=== PATIENT | male | born 1945 | race Hispanic/Latino ===

== ENCOUNTER 2021-09-07 10:10 | Emergency (ER) | payer OTHER ==
[2021-09-07] MEDS ORDERED: ACETAMINOPHEN 325 MG TABLET ONE (10:46)
--- NOTE | 2021-09-07 11:04 | RAD REPORT ---
EXAM DESCRIPTION: CT - Facial Bones W/ Mpr - 09/07/2021 10:36 am CLINICAL HISTORY: Fall, blunt force trauma to the forehead and face, laceration, patient on Plavix COMPARISON: None. TECHNIQUE: Axial 2 millimeter thick images of the facial bones were obtained with sagittal and coron al reconstruction imaging. All CT scans are performed using dose optimization technique as appropriate and may include automated exposure control or mA/KV adjustment according to patient size. FINDINGS: Small left frontal scalp hematoma is present. Underlying bone is intact. No other signific ant soft tissue injury seen. No foreign body. No facial bone fracture identified. Condyles of the man dible are normally positioned. No globe or orbital content abnormality seen. Mastoid air cells and paranasal sinuses are clear. IMPRESSION: Small left frontal scalp hematoma with underlying bone and sinus intact. No facial bone fracture or other significant finding.
--- NOTE | 2021-09-07 11:07 | RAD REPORT ---
EXAM DESCRIPTION: CT - CTHCSPWOC - 09/07/2021 10:36 am CLINICAL HISTORY: fall w/o loc, blunt force trauma to the forehead COMPARISON: No comparisons TECHNIQUE: Axial 5 mm thick images of the head were obtained. Axial 2 mm thick images of the cervic al spine were obtained with sagittal and coronal reconstruction images generated and reviewed. All CT scans are performed using dose optimization technique as appropriate and may include automated exposure control or mA/KV adjustment according to patient size. FINDINGS: No intracranial hemorrhage, mass, edema or acute intracranial finding. No cortical level i nfarction seen. No cortical edema or sulcal effacement. Patient has moderate severity bifrontal atrop hy. Remaining cerebral atrophy pattern is more mild in severity. Ventricles are in proportion to volu me loss. Mild to moderate severity chronic ischemic changes are present. Again, findings are more pro nounced in the frontal lobes. No extra-axial fluid collections. The mastoid air cells are clear. Faci al bones, orbits and sinuses are separately detailed. And Cervical body height and alignment are normal. No disk space narrowing. No fracture or acute bony abn ormality. Degenerative changes are present at the dens anterior arch C1 level. Calcifications of the transverse ligament posterior to the dens noted. Central canal detail is inherently limited. No paraspinal mass or hematoma. IMPRESSION: Atrophy and chronic ischemic changes are present with no acute intracranial finding seen . Facial bones, sinuses and orbits are separately detailed. No acute cervical spine finding. Negative CT cervical spine examination for acute or significant finding.
--- NOTE | 2021-09-07 11:20 | ER ---
Nurse's Notes [facility] Name: Malvin Pierre Age: 75 yrs Sex: Male : 1945 Arrival Date: 09/07/2021 Time: 10:12 Bed 2 Private MD: Janusz Brand Diagnosis: Abrasion of nose;Scalp Hematoma Presentation: 09/07 10:28 Chief complaint: Patient states: "I was just walking and I lost my balance and fell and vg1 hit my head on the concrete." Pt appears to have an abrasion to forehead and nose and swelling, no bleeding. Pt denies LOC. Pt states is taking Plavix. Coronavirus screen:. Ebola Screen: Patient denies exposure to infectious person. Patient denies travel to an Ebola-affected area in the 21 days before illness onset. Initial Sepsis Screen: Does the patient meet any 2 criteria? No. Patient's initial sepsis screen is negative. Does the patient have a suspected source of infection? No. Patient's initial sepsis screen is negative. Risk Assessment: Do you want to hurt yourself or someone else? Patient reports no desire to harm self or others. Onset of symptoms was September 07, 2021 at 09:45. 10:28 Method Of Arrival: Wheelchair vg1 10:28 Acuity: JOHN 3 vg1 10:33 Mechanism of Injury: Fall from standing position. [facility] 11:40 Care prior to arrival: None. Trauma event details: Injury occurred in the [facility] [place], Injury occurred: at home. Injury occurred: September 07, 2021 Injury occurred at: 10:00. Triage Assessment: 10:30 General: Appears in no apparent distress. comfortable, Behavior is calm, cooperative. vg1 Pain: Complains of pain in forehead Pain currently is 7 out of 10 on a pain scale. Neuro: Level of Consciousness is awake, alert, obeys commands, Oriented to person, place, time, situation. Trauma Activation: Consult Physician: ED Physician; Name: ; Notified At: ; Arrived At: Physician: General Surgeon; Name: ; Notified At: ; Arrived At: Physician: Radiology; Name: ; Notified At: ; Arrived At: Physician: Respiratory; Name: ; Notified At: ; Arrived At: Physician: Lab; Name: ; Notified At: ; Arrived At: Historical: - Allergies: 10:30 Codeine; vg1 - Home Meds: 10:30 Plavix Oral [Active]; vg1 - Immunization history: Last tetanus immunization: - up to date. - Social history:: Smoking status: Patient denies any tobacco usage or history of. Screenin:30 Abuse screen: Denies threats or abuse. Denies injuries from another. Nutritional 6 screening: No deficits noted. Tuberculosis screening: No symptoms or risk factors identified. Fall Risk Fall in past 12 months (25 points). Gait- Impaired (20 pts.). Primary Survey: 10:32 NO uncontrolled hemorrhage observed. A: The client is awake and alert. The airway is jh6 patent. The client is alert. Airway: patent. Breathing/Chest: Spontaneous respiratory effort, equal unlabored respirations, breath sounds clear bilaterally, regular pattern, symmetrical chest rise and fall. Respiratory effort: spontaneous, unlabored, Breath sounds: clear, Respiratory pattern: regular, Chest inspection: symmetrical rise and fall of the chest. Circulation: No external hemorrhage present. Regular and strong central pulse, skin warm/dry/normal color. Disability Pupils are equal, round, reactive to light and accommodation. Client is alert. Exposure/Environment: All clothing and personal items were removed. Forensic evidence collection is not deemed to be indicated at this time. Items placed in patient belonging bag. Reassessment Breathing:. Secondary Survey: 10:34 HEENT: No deficits noted. Head Other redness and swelling to l eyebrow area. [facility] Assessment: 10:28 General: Appears in no apparent distress. Behavior is calm, cooperative. Pain: 6 Complains of pain in forehead and left eye Pain currently is 6 out of 10 on a pain scale. Quality of pain is described as throbbing, Pain began suddenly, Is continuous. Neuro: No deficits noted. Level of Consciousness is awake, alert, obeys commands, Oriented to person, place, time, situation, Derrick Hand are equal bilaterally Moves all extremities. Gait is unsteady, Speech is normal, Reports headache frontal area. Derm: Wound noted forehead Bruising that is dark purple, on forehead. 11:39 Reassessment: PT D/C HOME WITH FAMILY. bp Vital Signs: 10:28 BP 137 / 70; Pulse 64; Resp 16; Pulse Ox 98% on R/A; Weight 85.73 kg; Height 5 ft. 2 vg1 in. (157.48 cm); Pain 7/10; 10:28 Body Mass Index 34.57 (85.73 kg, 157.48 cm) vg1 Gloria Coma Score: 10:32 Eye Response: spontaneous(4). Verbal Response: oriented(5). Motor Response: obeys jh6 commands(6). Total: 15. Trauma Score (Adult): 10:33 Eye Response: spontaneous(1); Verbal Response: oriented(1); Motor Response: obeys jh6 commands(2); Systolic BP: > 89 mm Hg(4); Respiratory Rate: 10 to 29 per min(4); Gloria Score: 15; Trauma Score: 12 ED Course: 10:12 Patient arrived in ED. mr 10:12 Janusz Brand is Private Physician. mr 10:17 Karen Garcia FNP [facility]. jh7 10:17 Kong Marques DO is Attending Physician. jh7 10:26 Karen Estrada, RN is Primary Nurse. jh6 10:30 Triage completed. vg1 10:30 Arm band placed on. vg1 10:[address] jh6 10:31 X-ray(s) taken. jh6 10:33 Bed in low position. Call light in reach. Side rails up X 1. jh6 10:38 CT Facial Bones W/O Con In Process Unspecified. EDMS 10:38 CT Head C Spine In Process Unspecified. EDMS 11:39 No provider procedures requiring assistance completed. Patient did not have IV access bp during this emergency room visit. 11:40 Patient maintains SpO2 saturation greater than 95% on room air. Thermoregulation: warm bp blanket given to patient. Administered Medications: 10:40 Drug: Tylenol 650 mg Route: PO; bp 11:40 Follow up: Response: No adverse reaction bp Medication: 11:39 VIS not applicable for this client. bp Intake: 11:40 PO: 0ml; Total: 0ml. bp Output: 11:40 Urine: 0ml; Total: 0ml. bp Outcome: 11:19 Discharge ordered by . jh7 11:39 Discharged to home with family. bp 11:39 Condition: stable 11:39 Discharge instructions given to patient, family, Instructed on discharge instructions, follow up and referral plans. Demonstrated understanding of instructions, follow-up care. 11:40 Patient's length of stay was not longer than 2 hours. bp 11:41 Patient left the ED. bp Signatures: Dispatcher [employer] ALMAJenae SalehDaniel, RN RN Olinda Martin, RN RN vg1 Karen Estrada, RN RN jh6 Karen Garcia, BEAD FLIPPER BEAD FLIPPER jh7 Corrections: (The following items were deleted from the chart) 10:31 10:28 Chief complaint: Patient states: "I was just walking and I lost my balance and vg1 fell and hit my head on the concrete." Pt appears to have an abrasion to forehead and nose and swelling, no bleeding. Pt denies LOC vg1
--- NOTE | 2021-09-07 11:20 | EDPHYS ---
Physician Documentation [facility] Name: Malvin Pierre Age: 75 yrs Sex: Male : 1945 Arrival Date: 09/07/2021 Time: 10:12 Bed 2 Private MD: Janusz Brand ED Physician Kong Marques HPI: 09/07 10:35 This 75 yrs old Male presents to ER via Wheelchair with complaints of Fall jh7 Injury, Head Injury Without LOC-Adult. 10:35 Details of fall: The patient fell from an upright position, while walking. Onset: The jh7 symptoms/episode began/occurred acutely. Patient reports that he was walking tripped on the concrete and fell on his face. Denies loss of consciousness. States that he does take Plavix. Reports mild pain to his forehead but no other complaints at this time.. Historical: - Allergies: 10:30 Codeine; vg1 - Home Meds: 10:30 Plavix Oral [Active]; vg1 - Immunization history: Last tetanus immunization: - up to date. - Social history:: Smoking status: Patient denies any tobacco usage or history of. ROS: 10:35 Constitutional: Negative for fever, chills, and weight loss, Eyes: Negative for injury, jh7 pain, redness, and discharge, ENT: Negative for injury, pain, and discharge, Neck: Negative for injury, pain, and swelling, Cardiovascular: Negative for chest pain, palpitations, and edema, Respiratory: Negative for shortness of breath, cough, wheezing, and pleuritic chest pain, Abdomen/GI: Negative for abdominal pain, nausea, vomiting, diarrhea, and constipation, Back: Negative for injury and pain, Neuro: Negative for headache, weakness, numbness, tingling, and seizure. 10:35 Skin: Positive for abrasion(s), hematoma, Negative for laceration(s). 10:35 All other systems are negative. Exam: 10:35 Constitutional: This is a well developed, well nourished patient who is awake, alert, jh7 and in no acute distress. Eyes: Pupils equal round and reactive to light, extra-ocular motions intact. Lids and lashes normal. Conjunctiva and sclera are non-icteric and not injected. Cornea within normal limits. Periorbital areas with no swelling, redness, or edema. ENT: Nares patent. No nasal discharge, no septal abnormalities noted. Tympanic membranes are normal and external auditory canals are clear. Oropharynx with no redness, swelling, or masses, exudates, or evidence of obstruction, uvula midline. Mucous membranes moist. Neck: Trachea midline, no thyromegaly or masses palpated, and no cervical lymphadenopathy. Supple, full range of motion without nuchal rigidity, or vertebral point tenderness. No Meningismus. Cardiovascular: Regular rate and rhythm with a normal S1 and S2. No gallops, murmurs, or rubs. Normal PMI, no JVD. No pulse deficits. Respiratory: Lungs have equal breath sounds bilaterally, clear to auscultation and percussion. No rales, rhonchi or wheezes noted. No increased work of breathing, no retractions or nasal flaring. Abdomen/GI: Soft, non-tender, with normal bowel sounds. No distension or tympany. No guarding or rebound. No evidence of tenderness throughout. Back: No spinal tenderness. No costovertebral tenderness. Full range of motion. Skin: Warm, dry with normal turgor. Normal color with no rashes, and no evidence of cellulitis. Small abrasion present over forehead. Neuro: Awake and alert, GCS 15, oriented to person, place, time, and situation. Cranial nerves II-XII grossly intact. Motor strength 5/5 in all extremities. Sensory grossly intact. Cerebellar exam normal. Normal gait. 10:35 Head/face: Noted is abrasion(s), that are mild, of the forehead, hematoma, that is mild, of the forehead. 17:20 ECG was reviewed by the Attending Physician. 7 Vital Signs: 10:28 BP 137 / 70; Pulse 64; Resp 16; Pulse Ox 98% on R/A; Weight 85.73 kg; Height 5 ft. 2 vg1 in. (157.48 cm); Pain 7/10; 10:28 Body Mass Index 34.57 (85.73 kg, 157.48 cm) vg1 [place] Coma Score: 10:32 Eye Response: spontaneous(4). Verbal Response: oriented(5). Motor Response: obeys jh6 commands(6). Total: 15. Trauma Score (Adult): 10:33 Eye Response: spontaneous(1); Verbal Response: oriented(1); Motor Response: obeys jh6 commands(2); Systolic BP: > 89 mm Hg(4); Respiratory Rate: 10 to 29 per min(4); [place] Score: 15; Trauma Score: 12 MDM: 10:25 Patient medically screened. [facility] 11:20 Differential diagnosis: abrasion, closed head injury, contusion. Data reviewed: vital [facility] signs, nurses notes, EKG. 11:20 Data interpreted: Pulse oximetry: is 98 %. Interpretation: normal. Counseling: I had a [facility] detailed discussion with the patient and/or guardian regarding: the historical points, exam findings, and any diagnostic results supporting the discharge/admit diagnosis, to return to the emergency department if symptoms worsen or persist or if there are any questions or concerns that arise at home. ED course: Reviewed CT scan results with patient. Advised him to apply ice at home and to take Tylenol as needed for pain. If he develops any new concerning symptoms, he may return to the ER for further eval.. 09/07 10:26 Order name: CT Facial Bones W/O Con; Complete Time: 11:14 [facility] 09/07 10:26 Order name: CT Head C Spine; Complete Time: 11:14 [facility] 09/07 10:46 Order name: EKG; Complete Time: 10:46 [facility] 09/07 11:17 Order name: Ice pack; Complete Time: 11:27 [facility] EC:20 Rate is 55 beats/min. Rhythm is regular. VT interval is prolonged at [address] jh7 changes noted. Clinical impression: No evidence of ischemia. Administered Medications: 10:40 Drug: Tylenol 650 mg Route: PO; bp 11:40 Follow up: Response: No adverse reaction bp Disposition: 21:54 Co-signature as Attending Physician, Kong TAYLOR was immediately available on-site ms3 in the Emergency Department for consultation in the care of the patient. . Disposition Summary: 09/07/21 11:19 Discharge Ordered Location: Home [facility] Problem: new [facility] Symptoms: have improved jh7 Condition: Stable jh Diagnosis - Abrasion of nose jh7 - Scalp Hematoma jh7 Followup: [facility] - With: Private Physician - When: 2 - 3 days - Reason: Recheck today's complaints Discharge Instructions: - Discharge Summary Sheet jh7 - Facial or Scalp Contusion jh7 - Fall Prevention in the Home, Adult 7 Forms: - Medication Reconciliation Form 7 - Thank You Letter [facility] Signatures: Dispatcher [employer] Daniel Hart, ANTONIO RN Olinda Martin RN RN vg1 Kong Marques, DO [place] ms3 Karen Garcia, CAR DROPPER CAR DROPPER [facility]
[2021-09-07 11:45] VITALS: BP 137/70; O2SAT 98
--- NOTE | 2021-09-08 08:17 | EKG ---
Test Date: 2021-09-07 Test Time: 11:25:58 Transcribing Operator Head: EILEEN MEASUREMENT RESULTS: Intervals: Rate: 55 NM: 248 QRSD: 138 QT: 486 QTc: 464 Wheeler: P: 78 NM: 248 QRS: 222 T: 49 INTERPRETIVE STATEMENTS: Sinus bradycardia with 1st degree AV block Right bundle branch block Lateral infarct, age undetermined Abnormal ECG Compared to ECG 02/26/2013 12:32:18 First degree AV block now present Myocardial infarct finding now present Sinus rhythm no longer present Electronically Signed On 09-08-21 08:12:48 CDT by Kendell Fierro
== END 2021-09-07 11:41 | disposition home or self-care (01) ==
LOC: ER 10:10
DX: S00.31XA Abrasion of nose, initial encounter (principal); S00.03XA Contusion of scalp, initial encounter; Z79.01 Long term (current) use of anticoagulants; Z88.5 Allergy status to narcotic agent
CPT/HCPCS: 70450; 70486; 72125; 76377; 93005; 99284